=== PATIENT | male | born 1995 | race Caucasian/White ===

== ENCOUNTER 2024-12-18 19:51 | Emergency (ER) | payer OTHER ==
[~2024-12-18] VITALS: Ht 188 cm; Wt 136.1 kg
[2024-12-18] MEDS ORDERED: Ketorolac Tromethamine 30mg Vial IM ONE (20:15)
[2024-12-18 21:20] LABS: Source, Urine Clean Catch
[2024-12-18 21:22] LABS: Bilirubin, Urine Neg (Neg); Color, Urine Yellow (P-Yellow); Glucose Qualitative, Urine Neg (Neg); Ketones, Urine Neg (Neg); Leukocyte Esterase, Urine Neg (Neg); Protein, Urine Neg (Neg); Specific Gravity, Urine 1.010 (1.003-1.022); Urobilinogen, Urine NORM (Normal)
[2024-12-18] MEDS ORDERED: META800 PO (22:06)
[2024-12-18] MEDS ORDERED: CYCL10 PO (22:06)
== END 2024-12-18 22:21 | disposition home or self-care (01) ==
LOC: ER 19:51
PROVIDERS: Emergency Medicine
DX: M51.16 Intervertebral disc disorders with radiculopathy, lumbar region (principal)
CPT/HCPCS: 72131; 76870; 81003; 96372; 99284-25; J1885